=== PATIENT | female | born 1965 | race Caucasian/White ===

== ENCOUNTER → 2017-09-18 | Outpatient (CLI) | payer OTHER ==
[~2017-09-18] MED LIST: Ascorbic Acid,Ester- PO; CALTRATE 6001 TABLE1 PO; CYMBALTA20 MG PO; Desyrel PO; Feosol PO; Magnesium PO; Soma PO; THERAGRAN1 TABLET PO; VALIUM5 MG PO; Zinc Gluconate PO
== END | disposition home or self-care (01) ==
LOC: RAD 12:07
DX: K76.0 Fatty (change of) liver, not elsewhere classified (principal)
CPT/HCPCS: 74176